=== PATIENT | female | born 1955 | race Caucasian/White ===

== ENCOUNTER 2022-09-06 12:02 | Outpatient (CLI) | payer MEDICARE, BC | END 2022-09-06 12:03 | disposition home or self-care (01) | LOC: CSHMAMMO 12:02 | PROVIDERS: ATTEND Family Medicine | DX: Z12.31 Encounter for screening mammogram for malignant neoplasm of breast (principal); Z80.3 Family history of malignant neoplasm of breast; Z98.890 Other specified postprocedural states; Z92.3 Personal history of irradiation | CPT/HCPCS: 77063; 77067 ==

== ENCOUNTER 2023-10-24 10:01 | Outpatient (CLI) | payer BC, MEDICARE | END 2023-10-24 10:02 | disposition home or self-care (01) | LOC: CSHMAMMO 10:01 | PROVIDERS: ATTEND Family Medicine | DX: Z12.31 Encounter for screening mammogram for malignant neoplasm of breast (principal); Z85.3 Personal history of malignant neoplasm of breast; Z98.890 Other specified postprocedural states; Z80.3 Family history of malignant neoplasm of breast | CPT/HCPCS: 77063; 77067 ==